=== PATIENT | male | born 1980 | race African-American/Black ===

== ENCOUNTER 2017-07-30 14:51 | Emergency (ER) | payer MEDICAID ==
[~2017-07-30] VITALS: Ht 182.9 cm; Wt 84.0 kg
[2017-07-30 15:01] VITALS: BP 116/74
== END 2017-07-30 18:00 | disposition left against medical advice (07) ==
LOC: ER 15:22
DX: Z53.21 Procedure and treatment not carried out due to patient leaving prior to being seen by health care provider (principal)

== ENCOUNTER 2024-05-20 15:22 | Emergency (ER) | payer MEDICAID ==
[~2024-05-20] VITALS: Ht 170.2 cm; Wt 75.0 kg
[2024-05-20 15:34] VITALS: O2SAT 94
[2024-05-20] MEDS: ACETAMINOPHEN 325MG TABLET PO ONE (16:36)
[2024-05-20] MEDS: BACITRACIN ZINC OINT UDPKT TOP ONE (16:37)
[2024-05-20 17:24] VITALS: BP 123/78; PULSE 89; RESP 18; TEMP 98.5
== END 2024-05-20 19:25 | disposition home or self-care (01) ==
LOC: ER 15:22
DX: S50.312A Abrasion of left elbow, initial encounter (principal); S80.212A Abrasion, left knee, initial encounter; S09.90XA Unspecified injury of head, initial encounter; Y08.89XA Assault by other specified means, initial encounter; Y93.89 Activity, other specified; Y92.89 Other specified places as the place of occurrence of the external cause; Y99.8 Other external cause status
CPT/HCPCS: 70486; 99284